=== PATIENT | female | born 1965 | race Caucasian/White ===

== ENCOUNTER 2020-02-06 14:13 | Emergency (ER) | payer OTHER, MEDICAID ==
[~2020-02-06] VITALS: Ht 177.8 cm; Wt 122.5 kg
[2020-02-06 16:20] VITALS: BP 142/61
== END 2020-02-06 16:36 | disposition home or self-care (01) ==
LOC: ER 14:13
DX: H57.12 Ocular pain, left eye (principal); H57.89 Other specified disorders of eye and adnexa; F17.210 Nicotine dependence, cigarettes, uncomplicated; F41.9 Anxiety disorder, unspecified; F32.9 Major depressive disorder, single episode, unspecified; F20.9 Schizophrenia, unspecified; Z98.890 Other specified postprocedural states; Z90.89 Acquired absence of other organs; Z98.51 Tubal ligation status